=== PATIENT | female | born 1985 | race African-American/Black ===

== ENCOUNTER 2019-01-24 18:51 | Emergency (ER) | payer OTHER ==
[2019-01-24 19:12] VITALS: BP 116/78; PULSE 88; TEMP 99.2; BMI 31.1
[2019-01-24] MEDS ORDERED: ACETAMINOPHEN 500 MG TABLET (FP) PO ONE (19:36)
[2019-01-24] MEDS ORDERED: ACETAMINOPHEN 500 MG TABLET (FP) ONE (19:37)
--- NOTE | 2019-01-24 19:37 | PDOC ---
History of Present Illness - General Chief Complaint: Sore Throat Stated Complaint: COLD FLU SYMTMS Time Seen by Provider: 01/24/19 19:19 - History of Present Illness Initial Comments: 01/24/19 19:36 33-year-old female without comorbidities presents for evaluation of sore throat and fever 3 days Past History - Past Medical History Allergies/Adverse Reactions: Allergies Allergy/AdvReac Type Severity Reaction Status Date / Time No Known Allergies Allergy Verified 01/24/19 19:28 Home Medications: Ambulatory Orders NK [No Known Home Medication] 01/24/19 COPD: No - Suicide/Smoking/Psychosocial Hx Smoking History: Never smoked Review of Systems - Review of Systems Constitutional: Yes: Fever HEENTM: Yes: Throat Pain, Difficulty Swallowing *Physical Exam - Vital Signs Last Vital Signs Temp Pulse Resp BP Pulse Ox 99.2 F 88 18 116/78 99 01/24/19 19:09 01/24/19 19:09 01/24/19 19:09 01/24/19 19:09 01/24/19 19:09 - Physical Exam Comments: 01/24/19 19:36 HEAD: NC/AT EYES: Conjuntiva clear Ears: Canals and TM's normal NOSE: No d/c THROAT: Moist mucous membrances, oral pharanx clear, uvula midline NECK: Supple without adenopathy CARDIAC: S1 S2 LUNGS: CTA Full and Equal breath sounds ABDOMEN: Soft NT ND MS: Full ROM in all joints without edema NEUROLOGIC: No gross sensory or motor deficits, NVID SKIN: Normal color and temperature no lesions or rashes *DC/Admit/Observation/Transfer Diagnosis at time of Disposition: Strep pharyngitis - Discharge Dispostion Disposition: HOME Condition at time of disposition: Stable Decision to Admit order: No - Referrals Referrals: ON STAFF,NOT [Primary Care Provider] - - Patient Instructions Printed Discharge Instructions: Strep Throat, DI for Strep Throat Additional Instructions: You were given a one-time injection of penicillin which will treat the strep throat You do not require further antibiotics. He will also given a long-acting steroid in the emergency room which will help with your pain. Do not take any Advil Motrin ibuprofen or Aleve for pain. He may take Tylenol as directed. Return to the emergency room for worsening symptoms and follow-up with your primary care physician in one to 2 days for further evaluation and treatment options. - Post Discharge Activity
[2019-01-24] MEDS ORDERED: PENICILLIN G BENZATHINE 1,200,000 UNIT/2 ML PFS IM ONE (20:10)
[2019-01-24] MEDS ORDERED: DEXAMETHASONE LIQUID 0.5 MG/5 ML 240 ML BULK BOTTLE PO ONE (20:10)
[2019-01-24] MEDS ORDERED: PENICILLIN G BENZATHINE 2,400,000 UNIT/4 ML PFS ONE (20:23)
[2019-01-24] MEDS ORDERED: DEXAMETHASONE SOD PHOSPHATE 10 MG/1 ML VIAL ONE (20:23)
== END 2019-01-24 20:31 | disposition home or self-care (01) ==
LOC: JERFT 18:51
DX: J02.0 Streptococcal pharyngitis (principal); B95.0 Streptococcus, group A, as the cause of diseases classified elsewhere
CPT/HCPCS: 87880; 96372; 99281-25